=== PATIENT | female | born 1990 | race African-American/Black ===

== ENCOUNTER 2019-11-18 17:39 | Emergency (ER) | payer OTHER ==
[~2019-11-18] VITALS: Ht 157.5 cm; Wt 70.0 kg
[~2019-11-18 17:39] MED LIST: LEVE500T19
[2019-11-18] MEDS ORDERED: SODIUM CHLORIDE 0.9% 1,000 ML IV ONE (19:15)
[2019-11-18] MEDS ORDERED: KETOROLAC 30MG/ML VIAL IV STA (19:15)
[2019-11-18 19:42] LABS: CLARITY URINE CLEAR (CLEAR); COLOR URINE YELLOW (YELLOW); KETONES URINE NEGATIVE (NEGATIVE); LEUKOCYTE ESTERASE URINE NEGATIVE (NEGATIVE); NITRITE URINE NEGATIVE (NEGATIVE); OCCULT BLOOD URINE NEGATIVE (NEGATIVE); PROTEIN URINE NEGATIVE (NEGATIVE); SPECIFIC GRAVITY URINE 1.009 (1.005-1.030); UROBILINOGEN URINE 0.2 E.U./dL (0.2-1.0)
[2019-11-18 19:46] LABS: BASOPHILS % 1.2 % (0.0-2.0); EOSINOPHILS % 2.8 % (0.0-5.0); HEMATOCRIT. 41.3 % (36.0-48.0); LYMPHOCYTES % 43.1 % (20.0-50.0); MEAN CORPUSCULAR HEMOGLOBIN 29.1 pg (28.0-32.0); MEAN CORPUSCULAR VOLUME 85.9 fL (81.0-99.0); MEAN PLATELET VOLUME 9.6 fl (7.4-10.4); MONOCYTES % 10.2 % (2.0-8.0); NEUTROPHILS % 42.7 % (40.0-76.0); PLATELET 200 x1000/uL (130-400)
[2019-11-18 19:57] LABS: HCG SCREEN NEGATIVE
[2019-11-18 20:00] VITALS: BP 107/67
[2019-11-18 20:43] LABS: CHLORIDE 110 mEq/L (98-107)
== END 2019-11-18 22:03 | disposition home or self-care (01) ==
LOC: ER 17:39
DX: R10.30 Lower abdominal pain, unspecified (principal); I49.9 Cardiac arrhythmia, unspecified; Z88.1 Allergy status to other antibiotic agents; Z88.8 Allergy status to other drugs, medicaments and biological substances
CPT/HCPCS: 36415; 74176; 80053; 81003; 83690; 84703; 85025; 93005; 96361; 96374; 99285; J1885; J7030

== ENCOUNTER 2022-01-26 11:22 | Emergency (ER) | payer MEDICAID, OTHER ==
[~2022-01-26] VITALS: Ht 157.5 cm; Wt 60.0 kg
[2022-01-26] MEDS ORDERED: KETOROLAC 30MG/ML VIAL IM ONE (12:15)
[2022-01-26 13:21] LABS: CLARITY URINE CLEAR (CLEAR); COLOR URINE YELLOW (YELLOW); KETONES URINE NEGATIVE (NEGATIVE); LEUKOCYTE ESTERASE URINE 1+ (NEGATIVE); NITRITE URINE NEGATIVE (NEGATIVE); OCCULT BLOOD URINE NEGATIVE (NEGATIVE); PROTEIN URINE NEGATIVE (NEGATIVE); SPECIFIC GRAVITY URINE 1.017 (1.005-1.030); UROBILINOGEN URINE 0.2 E.U./dL (0.2-1.0)
[2022-01-26] MEDS ORDERED: IBUP-2029 MT (14:26)
[2022-01-26] MEDS ORDERED: DOXY100C5 MT (14:26)
[2022-01-26] MEDS ORDERED: CEFTRIAXONE SODIUM 500 MG/VIAL IM ONE (14:30)
[2022-01-26 14:45] VITALS: BP 147/93
[2022-01-26 15:38] LABS: BASOPHILS % 1.2 % (0.0-2.0); EOSINOPHILS % 1.1 % (0.0-5.0); HEMATOCRIT. 42.3 % (36.0-48.0); HEMOGLOBIN. 14.3 g/dL (12.0-16.0); LYMPHOCYTES % 41.9 % (20.0-50.0); MEAN CORPUSCULAR HEMOGLOBIN 29.2 pg (28.0-32.0); MEAN CORPUSCULAR VOLUME 86.2 fL (81.0-99.0); MEAN PLATELET VOLUME 9.5 fl (7.4-10.4); MONOCYTES % 6.6 % (2.0-8.0); NEUTROPHILS % 49.2 % (40.0-76.0); PLATELET 212 x1000/uL (130-400); RED BLOOD CELL COUNT 4.91 mill/uL (4.2-5.4); RED CELL DISTRIBUTION WIDTH 13.7 % (11.6-14.6)
[2022-01-26 15:39] LABS: CHLORIDE 105 mEq/L (98-107)
[2022-01-29 06:10] LABS: NEISSERIA GONORRHOEAE NAA Positive (Negative)
== END 2022-01-26 15:22 | disposition home or self-care (01) ==
LOC: ER 11:25
DX: A56.09 Other chlamydial infection of lower genitourinary tract (principal); A54.03 Gonococcal cervicitis, unspecified; N93.0 Postcoital and contact bleeding; R03.0 Elevated blood-pressure reading, without diagnosis of hypertension; M79.652 Pain in left thigh
CPT/HCPCS: 36415; 76830; 76856; 80048; 81003; 81025; 85025; 87210; 87491; 87591; 96372; 99284; J0696; J1885; Z7610